=== PATIENT | male | born 1975 | race Caucasian/White ===

== ENCOUNTER 2017-06-25 14:45 | Emergency (ER) | payer MEDICAID ==
[~2017-06-25] VITALS: Ht 182.9 cm; Wt 90.9 kg
[~2017-06-25 14:45] MED LIST: BENZ1TAB10 PO; HALO5 PO; LITH300C3 PO
[2017-06-25] MEDS ORDERED: HYDROCODONE/ACETAMINOPHEN 5-325 MG TABLET PO ONE (17:15)
[2017-06-25] MEDS ORDERED: POVIDONE-IODINE 10% 15 ML SOLUTION UD TP ONE (17:30)
[2017-06-25] MEDS ORDERED: CEPHALEXIN MONOHYDRATE 500 MG CAPSULE PO ONE (17:30)
[2017-06-25] MEDS ORDERED: LIDOCAINE HCL 1% 20 ML VIAL INJ ONE (17:30)
[2017-06-25] MEDS ORDERED: SULFAMETHOX/TRIMETH DS 800-160 MG/TABLET PO ONE (17:30)
[2017-06-25 20:10] VITALS: BP 137/89
== END 2017-06-25 20:11 | disposition home or self-care (01) ==
LOC: EMS 14:46
DX: L02.413 Cutaneous abscess of right upper limb (principal); L03.011 Cellulitis of right finger; F12.90 Cannabis use, unspecified, uncomplicated; F15.90 Other stimulant use, unspecified, uncomplicated; F17.210 Nicotine dependence, cigarettes, uncomplicated
CPT/HCPCS: 10061; 99284; J3490

== ENCOUNTER 2017-06-27 15:00 | Emergency (ER) | payer MEDICAID ==
[~2017-06-27] VITALS: Ht 193 cm; Wt 77.0 kg
[2017-06-27 15:25] VITALS: BP 125/81
[2017-06-27] MEDS ORDERED: IBUPROFEN 800 MG TABLET PO ONE (15:30)
[2017-06-27] MEDS ORDERED: SULFAMETHOX/TRIMETH DS 800-160 MG/TABLET PO ONE (15:30)
[2017-06-27] MEDS ORDERED: CEPHALEXIN MONOHYDRATE 500 MG CAPSULE PO ONE (15:30)
== END 2017-06-27 15:55 | disposition home or self-care (01) ==
LOC: EMS 15:01
DX: L02.413 Cutaneous abscess of right upper limb (principal); F20.9 Schizophrenia, unspecified; F17.210 Nicotine dependence, cigarettes, uncomplicated; Z79.899 Other long term (current) drug therapy
CPT/HCPCS: 99284